=== PATIENT | male | born 1965 | race Caucasian/White ===

== ENCOUNTER 2021-02-08 21:58 | Emergency (ER) | payer BC ==
[~2021-02-08] VITALS: Ht 177.8 cm; Wt 99.8 kg
[2021-02-08 22:07] VITALS: BP 132/80
[2021-02-08 23:00] LABS: Basophils # (auto) 0 10 ^3/uL (0-0.2); Basophils % (auto) 0.3 % (0.0-2.0); Eosinophils # (auto) 0 10 ^3/uL (0-0.8); Eosinophils % (auto) 0.2 % (0.0-7.0); Hematocrit 49.6 % (41.0-53.0); Hemoglobin 17.2 g/dL (13.5-17.5); Lymphocytes # (auto) 0.6 10 ^3/uL (0.4-5.4); Lymphocytes % (auto) 11.3 % (10.0-50.0); Mean Corpuscular Hemoglobin 30.3 pg (28.0-32.0); Mean Corpuscular Hgb Conc. 34.7 g/dL (32.0-36.0); Mean Corpuscular Volume 87.4 fL (80.0-100.0); Monocytes # (auto) 0.4 10 ^3/uL (0-1.3); Monocytes % (auto) 7.1 % (0.0-12.0); Neutrophils # (auto) 4.5 10 ^3/uL (1.6-8.6); Neutrophils % (auto) 81.1 % (37.0-80.0); Nucleated Red Blood Cells % 0.2 %; Platelet Count (auto) 132 10^3/uL (140-450); Red Blood Cells 5.68 10^6/uL (4.5-5.90); Red Cell Distribution Width 13.7 % (11.8-14.3); White Blood Cell 5.6 10^3/uL (4.4-10.8)
[2021-02-08 23:13] LABS: Urine Bacteria FEW /hpf (None Seen); Urine Blood Negative /uL (Negative); Urine Mucus FEW (None Seen); Urine Specific Gravity 1.039 (1.001-1.035); Urine WBC 1 /hpf (0 - 3)
[2021-02-08 23:15] LABS: Albumin 3.6 g/dL (3.4-5.0); BUN/Creatinine Ratio 18.7; Potassium 3.8 mmol/L (3.5-5.1)
[2021-02-08 23:17] LABS: Bilirubin, Total 0.5 mg/dL (0.2-1.0); Total Protein 7.5 g/dL (6.4-8.2)
[2021-02-08] MEDS ORDERED: SODIUM CHLORIDE 0.9% 1,000 ML IV ONE (23:45)
[2021-02-09] MEDS ORDERED: DOXYCYCLINE 100 MG TAB/CAP PO ONE (00:45)
[2021-02-09] MEDS ORDERED: cefTRIAXone 1GM/50ML D5W 50 ML IV ONE (00:45)
[2021-02-09] MEDS ORDERED: ACETAMINOPHEN 325 MG TAB PO ONE (01:15)
== END 2021-02-09 01:32 | disposition home or self-care (01) ==
LOC: ER 22:03
DX: U07.1 COVID-19 (principal); J12.82 Pneumonia due to coronavirus disease 2019; E86.0 Dehydration; D69.6 Thrombocytopenia, unspecified
CPT/HCPCS: 36415; 71045; 80053; 81001; 85025; 87426; 96361; 96365; 99285; J0696; J7030

== ENCOUNTER 2021-02-11 15:40 | Inpatient (IN) | payer BC ==
[~2021-02-11] VITALS: Ht 180.3 cm; Wt 106.5 kg
[2021-02-11] MEDS ORDERED: AZITHROMYCIN 500MG/ 250ML 250 ML IV ONE (16:30)
[2021-02-11] MEDS ORDERED: cefTRIAXone 1GM/50ML D5W 50 ML IV ONE (16:30)
[2021-02-11] MEDS ORDERED: DexAMETHasone SOD PHOS 10MG/1ML VIAL INJ IV ONE (16:30)
[2021-02-11 17:42] LABS: Basophils # (auto) 0 10 ^3/uL (0-0.2); Basophils % (auto) 0.3 % (0.0-2.0); Eosinophils # (auto) 0 10 ^3/uL (0-0.8); Hematocrit 48.7 % (41.0-53.0); Hemoglobin 16.7 g/dL (13.5-17.5); Lymphocytes # (auto) 0.2 10 ^3/uL (0.4-5.4); Lymphocytes % (auto) 1.6 % (10.0-50.0); Mean Corpuscular Hemoglobin 30.2 pg (28.0-32.0); Mean Corpuscular Hgb Conc. 34.3 g/dL (32.0-36.0); Monocytes # (auto) 0.4 10 ^3/uL (0-1.3); Monocytes % (auto) 3.6 % (0.0-12.0); Neutrophils # (auto) 10.4 10 ^3/uL (1.6-8.6); Neutrophils % (auto) 94.5 % (37.0-80.0); Nucleated Red Blood Cells % 0.1 %; Platelet Count (auto) 179 10^3/uL (140-450); Red Blood Cells 5.54 10^6/uL (4.5-5.90); Red Cell Distribution Width 13.6 % (11.8-14.3)
[2021-02-11 17:59] LABS: Alanine Aminotransferase 94 U/L (16-61); Albumin 3.1 g/dL (3.4-5.0); Anion Gap 6 (5-15); Blood Urea Nitrogen 22 mg/dL (7-18); Carbon Dioxide 27 mmol/L (21-32); Chloride 103 mmol/L (98-107); Glucose 119 mg/dL (74-106); Potassium 3.7 mmol/L (3.5-5.1); Sodium 136 mmol/L (136-145)
[2021-02-11 18:04] LABS: Alkaline Phosphatase 45 U/L (45-117); Aspartate Aminotransferase 59 U/L (15-37); Bilirubin, Total 0.6 mg/dL (0.2-1.0); GFR African American 94 mL/min; GFR Non-African American 77 mL/min; Total Protein 6.9 g/dL (6.4-8.2)
[2021-02-11 20:50] LABS: Urine Bacteria FEW /hpf (None Seen); Urine Blood Negative /uL (Negative); Urine Mucus FEW (None Seen); Urine Specific Gravity 1.023 (1.001-1.035); Urine WBC 3 /hpf (0 - 3)
[2021-02-11] MEDS ORDERED: ALBUTEROL SULF HFA 90MCG INH 200DOSE IN PRN (21:15)
[2021-02-11] MEDS ORDERED: REMDESIVIR PER PHARMACY 0 ML IV SCH (21:15)
[2021-02-11] MEDS ORDERED: ACETAMINOPHEN 500 MG TAB PO PRN (21:15)
[2021-02-11] MEDS ORDERED: BUDESONIDE (INHALATION) 180 MCG IH IN SCH (22:00)
[2021-02-11] MEDS ORDERED: NITROGLYCERIN 0.4 MG SL TAB SL PRN (22:00)
[2021-02-11] MEDS ORDERED: IPRATROPIUM BROMIDE HFA AER IN SCH (22:00)
[2021-02-11] MEDS ORDERED: ONDANSETRON HCL 4 MG/2 ML VIAL IV PRN (22:00)
[2021-02-11] MEDS ORDERED: TEMAZEPAM 15 MG CAP PO PRN (22:00)
[2021-02-11] MEDS ORDERED: FAMOTIDINE 20 MG TAB PO SCH (22:00)
[2021-02-11] MEDS ORDERED: ENOXAPARIN SOD 40 MG/0.4 ML SYRINGE SC SCH (22:00)
[2021-02-11] MEDS ORDERED: MORPHINE SULF INJ 2 MG/ML SYRINGE 1ML IV PRN (22:00)
[2021-02-11 22:10] VITALS: BP 118/76
[2021-02-11] MEDS ORDERED: REMDESIVIR 200 MG in NS 210ml LOADING DOSE ADULT IV ONE (22:15)
[2021-02-11 22:33] LABS: Magnesium 2.7 mg/dL (1.6-2.6)
[2021-02-11 22:41] LABS: CRP High Sensitivity 3.4 mg/dL (< 0.3)
[2021-02-11 23:53] VITALS: BP 118/76
[2021-02-12] VITALS (8 sets, daily range): BP systolic 100–120; BP diastolic 64–78
[2021-02-12] MEDS ORDERED: APIX5TAB4 PO (00:41)
[2021-02-12] MEDS ORDERED: RIVSET PO (01:25)
[2021-02-12] MEDS ORDERED: NITROGLYCERIN 0.4 MG SL TAB SL PRN (05:15)
[2021-02-12] MEDS ORDERED: REMDESIVIR PER PHARMACY 0 ML IV SCH (05:15)
[2021-02-12] MEDS ORDERED: ACETAMINOPHEN 500 MG TAB PO PRN (05:15)
[2021-02-12] MEDS ORDERED: ONDANSETRON HCL 4 MG/2 ML VIAL IV PRN (05:15)
[2021-02-12] MEDS ORDERED: TEMAZEPAM 15 MG CAP PO PRN (05:15)
[2021-02-12] MEDS ORDERED: MORPHINE SULF INJ 2 MG/ML SYRINGE 1ML IV PRN (05:15)
[2021-02-12] MEDS: IPRATROPIUM BROMIDE HFA AER IN SCH ×4 (06:00→22:19)
[2021-02-12] MEDS ORDERED: IVERMECTIN 3 MG TAB PO ONE ×2 (07:00)
[2021-02-12] MEDS ORDERED: cefTRIAXone 1GM/50ML D5W 50 ML IV SCH (09:00)
[2021-02-12] MEDS: ALBUTEROL SULF HFA 90MCG INH 200DOSE IN PRN (09:48)
[2021-02-12] MEDS: BUDESONIDE (INHALATION) 180 MCG IH IN SCH ×2 (09:48→22:19)
[2021-02-12] MEDS ORDERED: AZITHROMYCIN 500MG/ 250ML 250 ML IV SCH (10:00)
[2021-02-12] MEDS ORDERED: ASCORBIC ACID 1,000 MG TAB PO SCH (10:00)
[2021-02-12] MEDS ORDERED: DexAMETHasone SOD PHOS 10MG/1ML VIAL INJ IV SCH (10:00)
[2021-02-12] MEDS ORDERED: CHOLECALCIFEROL (VITD3) 2,000 UNIT CAP/TAB PO SCH (10:00)
[2021-02-12] MEDS ORDERED: ZINC SULFATE 220mg CAP or TAB PO SCH (10:00)
[2021-02-12] MEDS: cefTRIAXone 1GM/50ML D5W 50 ML IV SCH (11:25)
[2021-02-12] MEDS: ZINC SULFATE 220mg CAP or TAB PO SCH (11:26)
[2021-02-12] MEDS: FAMOTIDINE 20 MG TAB PO SCH ×2 (11:26→21:40)
[2021-02-12] MEDS: CHOLECALCIFEROL (VITD3) 2,000 UNIT CAP/TAB PO SCH (11:26)
[2021-02-12] MEDS: DexAMETHasone SOD PHOS 10MG/1ML VIAL INJ IV SCH (11:26)
[2021-02-12] MEDS: ASCORBIC ACID 1,000 MG TAB PO SCH (11:26)
[2021-02-12] MEDS: AZITHROMYCIN 500MG/ 250ML 250 ML IV SCH (11:26)
[2021-02-12] MEDS ORDERED: REMDESIVIR 100mg 100 MG in SODIUM CHL 0.9% 230 ML IV SCH (15:00)
[2021-02-12] MEDS: REMDESIVIR 100mg 100 MG in SODIUM CHL 0.9% 230 ML IV SCH (16:06)
[2021-02-12] MEDS ORDERED: RIVAROXABAN 15 MG TAB PO SCH (18:00)
[2021-02-12] MEDS: RIVAROXABAN 20 MG TAB PO SCH (18:19)
[2021-02-13 05:09] VITALS: BP 109/72
[2021-02-13] MEDS: IPRATROPIUM BROMIDE HFA AER IN SCH ×4 (05:54→23:18)
[2021-02-13] MEDS: BUDESONIDE (INHALATION) 180 MCG IH IN SCH ×2 (05:55→19:22)
[2021-02-13] MEDS: ALBUTEROL SULF HFA 90MCG INH 200DOSE IN PRN (05:56)
[2021-02-13 08:44] VITALS: BP 111/71
[2021-02-13] MEDS: cefTRIAXone 1GM/50ML D5W 50 ML IV SCH (09:00)
[2021-02-13] MEDS ORDERED: IOHEXOL 350 MG/ML 100ML IJ ONE (10:22)
[2021-02-13] MEDS: DexAMETHasone SOD PHOS 10MG/1ML VIAL INJ IV SCH (11:18)
[2021-02-13] MEDS: AZITHROMYCIN 500MG/ 250ML 250 ML IV SCH (11:18)
[2021-02-13] MEDS: FAMOTIDINE 20 MG TAB PO SCH ×2 (11:19→21:41)
[2021-02-13] MEDS: ZINC SULFATE 220mg CAP or TAB PO SCH (11:19)
[2021-02-13] MEDS: ASCORBIC ACID 1,000 MG TAB PO SCH (11:19)
[2021-02-13] MEDS: CHOLECALCIFEROL (VITD3) 2,000 UNIT CAP/TAB PO SCH (11:19)
[2021-02-13 13:00] VITALS: BP 108/76
[2021-02-13 17:00] VITALS: BP 110/73
[2021-02-13] MEDS: REMDESIVIR 100mg 100 MG in SODIUM CHL 0.9% 230 ML IV SCH (17:22)
[2021-02-13] MEDS: RIVAROXABAN 20 MG TAB PO SCH (17:36)
[2021-02-13 20:00] VITALS: BP 115/75
[2021-02-13 22:00] VITALS: BP 115/75
[2021-02-14] VITALS (8 sets, daily range): BP systolic 105–120; BP diastolic 67–89
[2021-02-14] MEDS: IPRATROPIUM BROMIDE HFA AER IN SCH ×4 (05:51→22:34)
[2021-02-14] MEDS: ALBUTEROL SULF HFA 90MCG INH 200DOSE IN PRN ×2 (05:51→22:37)
[2021-02-14] MEDS: BUDESONIDE (INHALATION) 180 MCG IH IN SCH ×2 (05:51→22:36)
[2021-02-14 06:17] LABS: Albumin 2.5 g/dL (3.4-5.0)
[2021-02-14 06:21] LABS: BUN/Creatinine Ratio 34.1; Bilirubin, Total 0.6 mg/dL (0.2-1.0); Total Protein 6.2 g/dL (6.4-8.2)
[2021-02-14] MEDS: CHOLECALCIFEROL (VITD3) 2,000 UNIT CAP/TAB PO SCH (10:48)
[2021-02-14] MEDS: DexAMETHasone SOD PHOS 10MG/1ML VIAL INJ IV SCH (10:48)
[2021-02-14] MEDS: ZINC SULFATE 220mg CAP or TAB PO SCH (10:49)
[2021-02-14] MEDS: ASCORBIC ACID 1,000 MG TAB PO SCH (10:49)
[2021-02-14] MEDS: cefTRIAXone 1GM/50ML D5W 50 ML IV SCH (10:49)
[2021-02-14] MEDS: FAMOTIDINE 20 MG TAB PO SCH ×2 (10:49→22:08)
[2021-02-14] MEDS: AZITHROMYCIN 500MG/ 250ML 250 ML IV SCH (10:51)
[2021-02-14] MEDS: REMDESIVIR 100mg 100 MG in SODIUM CHL 0.9% 230 ML IV SCH (16:03)
[2021-02-14] MEDS: RIVAROXABAN 20 MG TAB PO SCH (18:03)
[2021-02-15 05:00] VITALS: BP 118/78
[2021-02-15] MEDS: BUDESONIDE (INHALATION) 180 MCG IH IN SCH ×2 (06:54→22:28)
[2021-02-15] MEDS: ALBUTEROL SULF HFA 90MCG INH 200DOSE IN PRN ×3 (06:54→22:29)
[2021-02-15] MEDS: IPRATROPIUM BROMIDE HFA AER IN SCH ×4 (06:54→22:28)
[2021-02-15 07:33] VITALS: BP 118/78
[2021-02-15 07:55] LABS: Potassium 4.7 mmol/L (3.5-5.1)
[2021-02-15 08:01] LABS: Albumin 2.6 g/dL (3.4-5.0); BUN/Creatinine Ratio 26.9; Calcium 8.1 mg/dL (8.5-10.1)
[2021-02-15 08:04] LABS: Bilirubin, Total 0.6 mg/dL (0.2-1.0)
[2021-02-15 08:37] VITALS: BP 110/73
[2021-02-15] MEDS: cefTRIAXone 1GM/50ML D5W 50 ML IV SCH (09:03)
[2021-02-15] MEDS: DexAMETHasone SOD PHOS 10MG/1ML VIAL INJ IV SCH (09:03)
[2021-02-15] MEDS: FAMOTIDINE 20 MG TAB PO SCH ×2 (09:03→21:13)
[2021-02-15] MEDS: CHOLECALCIFEROL (VITD3) 2,000 UNIT CAP/TAB PO SCH (09:03)
[2021-02-15] MEDS: ASCORBIC ACID 1,000 MG TAB PO SCH (09:03)
[2021-02-15] MEDS: ZINC SULFATE 220mg CAP or TAB PO SCH (09:03)
[2021-02-15] MEDS: AZITHROMYCIN 500MG/ 250ML 250 ML IV SCH (10:09)
[2021-02-15 12:37] VITALS: BP 108/71
[2021-02-15] MEDS: REMDESIVIR 100mg 100 MG in SODIUM CHL 0.9% 230 ML IV SCH (14:34)
[2021-02-15 16:37] VITALS: BP 105/71
[2021-02-15] MEDS: RIVAROXABAN 20 MG TAB PO SCH (18:00)
[2021-02-15 22:00] VITALS: BP 103/70
[2021-02-16 05:00] VITALS: BP 110/74
[2021-02-16] MEDS: BUDESONIDE (INHALATION) 180 MCG IH IN SCH ×2 (06:36→19:32)
[2021-02-16] MEDS: IPRATROPIUM BROMIDE HFA AER IN SCH ×4 (06:38→22:18)
[2021-02-16 08:24] VITALS: BP 98/67
[2021-02-16] MEDS: ASCORBIC ACID 1,000 MG TAB PO SCH (10:03)
[2021-02-16] MEDS: cefTRIAXone 1GM/50ML D5W 50 ML IV SCH (10:03)
[2021-02-16] MEDS: CHOLECALCIFEROL (VITD3) 2,000 UNIT CAP/TAB PO SCH (10:03)
[2021-02-16] MEDS: ZINC SULFATE 220mg CAP or TAB PO SCH (10:03)
[2021-02-16] MEDS: FAMOTIDINE 20 MG TAB PO SCH ×2 (10:03→21:32)
[2021-02-16] MEDS: DexAMETHasone SOD PHOS 10MG/1ML VIAL INJ IV SCH (10:03)
[2021-02-16 10:11] LABS: Basophils # (auto) 0 10 ^3/uL (0-0.2); Basophils % (auto) 0.4 % (0.0-2.0); Eosinophils # (auto) 0.1 10 ^3/uL (0-0.8); Eosinophils % (auto) 1.2 % (0.0-7.0); Hematocrit 49.1 % (41.0-53.0); Hemoglobin 17.1 g/dL (13.5-17.5); Lymphocytes # (auto) 0.8 10 ^3/uL (0.4-5.4); Lymphocytes % (auto) 7.8 % (10.0-50.0); Mean Corpuscular Hemoglobin 30.8 pg (28.0-32.0); Mean Corpuscular Hgb Conc. 34.8 g/dL (32.0-36.0); Mean Corpuscular Volume 88.6 fL (80.0-100.0); Monocytes # (auto) 0.6 10 ^3/uL (0-1.3); Monocytes % (auto) 6.2 % (0.0-12.0); Neutrophils # (auto) 8.6 10 ^3/uL (1.6-8.6); Neutrophils % (auto) 84.4 % (37.0-80.0); Nucleated Red Blood Cells % 0.2 %; Platelet Count (auto) 287 10^3/uL (140-450); Red Blood Cells 5.54 10^6/uL (4.5-5.90); Red Cell Distribution Width 13.6 % (11.8-14.3); White Blood Cell 10.2 10^3/uL (4.4-10.8)
[2021-02-16 10:42] LABS: Albumin 2.9 g/dL (3.4-5.0); Calcium 8.2 mg/dL (8.5-10.1); Potassium 3.8 mmol/L (3.5-5.1)
[2021-02-16 10:45] LABS: Bilirubin, Total 0.6 mg/dL (0.2-1.0); Total Protein 6.2 g/dL (6.4-8.2)
[2021-02-16] MEDS: AZITHROMYCIN 500MG/ 250ML 250 ML IV SCH (12:22)
[2021-02-16 13:00] VITALS: BP 107/70
[2021-02-16 17:00] VITALS: BP 103/79
[2021-02-16] MEDS: RIVAROXABAN 20 MG TAB PO SCH (17:43)
[2021-02-16 22:00] VITALS: BP 102/71
[2021-02-17 05:00] VITALS: BP 115/68
[2021-02-17] MEDS: IPRATROPIUM BROMIDE HFA AER IN SCH (07:12)
[2021-02-17] MEDS: BUDESONIDE (INHALATION) 180 MCG IH IN SCH (07:12)
[2021-02-17] MEDS: DexAMETHasone SOD PHOS 10MG/1ML VIAL INJ IV SCH (08:41)
[2021-02-17] MEDS: cefTRIAXone 1GM/50ML D5W 50 ML IV SCH (08:41)
[2021-02-17] MEDS: ZINC SULFATE 220mg CAP or TAB PO SCH (08:41)
[2021-02-17] MEDS: ASCORBIC ACID 1,000 MG TAB PO SCH (08:42)
[2021-02-17] MEDS: CHOLECALCIFEROL (VITD3) 2,000 UNIT CAP/TAB PO SCH (08:42)
[2021-02-17] MEDS: FAMOTIDINE 20 MG TAB PO SCH (08:42)
[2021-02-17 09:20] VITALS: BP 104/68
[2021-02-17 09:32] LABS: Hepatitis B Surface Antibody Negative
[2021-02-17 09:54] LABS: Hepatitis A Total Antibody Negative
[2021-02-17 11:22] VITALS: BP 104/68
[2021-02-17 12:22] LABS: Hepatitis B Core Total AB Negative
[2021-02-17 12:23] LABS: Hepatitis B Surface Antigen Negative (Negative); Hepatitis C Antibody Negative (Negative)
[2021-02-17 12:52] VITALS: BP 104/66
== END 2021-02-17 13:05 | disposition home or self-care (01) | DRG 177 ==
LOC: ER 15:40 → TELE 21:56 → ER 22:42 → TELE-EAST 22:46
PROVIDERS: ADMIT Nurse Practitioner; ATTEND Family Medicine
PROC: XW033E5 Introduction of Remdesivir Anti-infective into Peripheral Vein, Percutaneous Approach, New Technology Group 5 (ICD-10-PCS; principal; 2021-02-11)
DX: U07.1 COVID-19 (principal); J12.82 Pneumonia due to coronavirus disease 2019; J96.00 Acute respiratory failure, unspecified whether with hypoxia or hypercapnia; K76.89 Other specified diseases of liver; E66.9 Obesity, unspecified; Z86.718 Personal history of other venous thrombosis and embolism; Z79.01 Long term (current) use of anticoagulants; Z68.32 Body mass index [BMI] 32.0-32.9, adult
CPT/HCPCS: 36415; 71045; 71275; 76705; 80053; 81001; 82728; 83036; 83605; 83735; 83880; 84443; 84484; 85025; 85379; 86141; 86704; 86706; 86708; 86803; 87040; 87340; 87426; 93005; 94640; 96365; 96367; 96375; G0378; J0696; J1100